=== PATIENT | male | born 1960 | race Caucasian/White ===

== ENCOUNTER → 2016-06-10 | Outpatient (CLI) | payer OTHER ==
[~2016-06-10] MED LIST: AUGMENTIN875 MG PO; B-1100 MG PO; B-12500 MC1 SL; COMPAZINE10 MG PO; DURAGESIC12 MCG TD; ENDOCET 5-3251 EACH GT; FOLIC ACID1 MG GT; FOLIC ACID1 MG PO; IBUPROFEN100 MG/5 M PO; K-DUR20 MEQ PO; LIDOCAINE20 MG/1 M5 PO; MIDODRINE HCL5 MG GT; NAPROSYN500 MG PO; NIFEREX-150,FE150 MG GT; NOHOMEMEDS; PERCOCET 5/31 TABLET PO; PERCOCET 7.51 TABLET PO; PREVACID SOLUTA30 MG GT; PRILOSEC40 MG PO; TRAZODONE HCL50 MG GT; Thiamine,Vitamin B1 GT; ULTRAM50 MG PO; VALTREX1000 MG PO; VENTOLIN HFA18 GM IH; VICODIN 5-3001 EACH PO; VITAMIN B-1100 MG PO; ZOFRAN4 MG PO; ZOSYN 3.3753.375 GM IV; [UNRECOGNIZED DRUG - REMARK]
== END | disposition home or self-care (01) ==
DX: R13.10 Dysphagia, unspecified (principal); C02.9 Malignant neoplasm of tongue, unspecified; Z93.1 Gastrostomy status
CPT/HCPCS: 92611 GN

== ENCOUNTER 2016-07-02 15:16 | Emergency (ER) | payer OTHER ==
[~2016-07-02] VITALS: Ht 177.8 cm; Wt 66.8 kg
[2016-07-02 16:52] LABS: EOSINOPHIL (%) 1.3 % (0-5); EOSINOPHIL COUNT 0.2 K/uL (0-0.3); HEMATOCRIT 36.7 % (38.0-50.0); IMMATURE GRANULOCYTE (%) 0.3 % (0.0-0.7); IMMATURE GRANULOCYTE COUNT 0.4 K/uL; LYMPHOCYTE COUNT 0.7 K/uL (1.0-2.8); MCHC 33.8 G/DL (30.0-36.0); MCV 85.7 FL (86-99); MEAN PLAT.VOLUME 10.1 uM^3 (9.0-12.4); MONOCYTE (%) 7.7 % (3-12); MONOCYTE COUNT 1.2 K/uL (0-0.8); NEUTROPHIL (%) 86.4 % (45-76); NEUTROPHIL COUNT 13.8 K/uL (1.8-6.4); PLATELET COUNT 281 K/uL (156-360); RBC DIS.WIDTH-CV 14.5 % (11.8-14.6); RED BLOOD COUNT 4.28 M/uL (4.00-5.50); WHITE BLOOD COUNT 15.9 K/uL (4.1-10.2)
[2016-07-02 17:04] LABS: CHLORIDE 100 mEq/L (99-109); POTASSIUM 5.2 mEq/L (3.7-5.4); SODIUM 137 mEq/L (136-147)
[2016-07-02 17:05] LABS: GLUCOSE 139 mg/dL (70-99)
[2016-07-02 17:07] LABS: ANION GAP 11 MEQ/L (2-14)
[2016-07-02 17:09] LABS: GFR ESTIMATE (CALCULATED) > 59 mL/min/
[2016-07-02 17:10] LABS: UREA NITROGEN (BUN) 15 mg/dL (9-23)
[2016-07-02 17:14] LABS: TROP-I INTERPRETATION NEGATIVE; TROPONIN-I < 0.01 ng/mL (0.0-0.30)
[2016-07-03 03:32] VITALS: BP 122/82
== END 2016-07-03 04:06 | disposition short-term general hospital (02) ==
LOC: EME 15:16
PROVIDERS: Physician Assistant
DX: J39.2 Other diseases of pharynx (principal); B37.0 Candidal stomatitis; D72.829 Elevated white blood cell count, unspecified; Z85.810 Personal history of malignant neoplasm of tongue; Z85.89 Personal history of malignant neoplasm of other organs and systems; R06.02 Shortness of breath; F17.200 Nicotine dependence, unspecified, uncomplicated; J45.909 Unspecified asthma, uncomplicated
CPT/HCPCS: 70491; 71275; 80048; 84484; 85025; 87651 90; 93005; 99281; 99285; J7030